=== PATIENT | female | born 1995 | race Two or more races ===

== ENCOUNTER 2017-02-25 19:52 | Emergency (ER) | payer OTHER ==
[~2017-02-25] VITALS: Ht 157.5 cm; Wt 86.2 kg
[~2017-02-25 19:52] MED LIST: NITR100C62 PO; TRAM-48 PO
--- NOTE | 2017-02-25 20:03 | PHYS DOC ---
Past Medical History Past Medical History: No Pertinent History Past Surgical History: No Surgical History Alcohol Use: None Drug Use: None Adult General Chief Complaint Chief Complaint: VAGINAL BLEEDING HPI HPI Patient is a 21 year old female who presents with vaginal bleeding. She states she had her last menstrual period on November 30, 2016. She states that on Thursday she had bleeding into her underwear and then Thursday got less and then Thursday she developed some intermittent cramps. She states everything resolved until today when she started bleeding again. She states she' s been through 2 pads. She also has some intermittent cramps today. She denies any fevers chills nausea or vomiting. She denies any history of sexual transmitted infections. Review of Systems Review of Systems Constitutional: Denies fever or chills [] Eyes: Denies change in visual acuity, redness, or eye pain [] HENT: Denies nasal congestion or sore throat [] Respiratory: Denies cough or shortness of breath [] Cardiovascular: No additional information not addressed in HPI [] GI: Denies abdominal pain, nausea, vomiting, bloody stools or diarrhea [] : Denies dysuria or hematuria [] Musculoskeletal: Denies back pain or joint pain [] Integument: Denies rash or skin lesions [] Neurologic: Denies headache, focal weakness or sensory changes [] Endocrine: Denies polyuria or polydipsia [] Allergies Allergies Allergies Coded Allergies Type Severity Reaction Last Updated Verified No Known Drug Allergies 12/25/15 No Physical Exam Physical Exam Constitutional: Well developed, well nourished, no acute distress, non-toxic appearance. [] HENT: Normocephalic, atraumatic, bilateral external ears normal, oropharynx moist, no oral exudates, nose normal. [] Eyes: PERRLA, EOMI, conjunctiva normal, no discharge. [] Neck: Normal range of motion, no tenderness, supple, no stridor. [] Cardiovascular:Heart rate regular rhythm, no murmur [] Lungs & Thorax: Bilateral breath sounds clear to auscultation [] Abdomen/pelvic exam: Bowel sounds normal, soft, no tenderness, no masses, no pulsatile masses. Normal external genitalia, no bleeding in the vault, no cervical motion tenderness. Skin: Warm, dry, no erythema, no rash. [] Back: No tenderness, no CVA tenderness. [] Extremities: No tenderness, no cyanosis, no clubbing, ROM intact, no edema. [] Neurologic: Alert and oriented X 3, normal motor function, normal sensory function, no focal deficits noted. [] Psychologic: Affect normal, judgement normal, mood normal. [] Current Patient Data Vital Signs Vital Signs Date Time Temp Pulse Resp B/P (MAP) Pulse Ox O2 Delivery O2 Flow Rate FiO2 02/25/17 20:05 98.8 86 16 115/56 (75) 97 Room Air 98.8 Lab Values Laboratory Tests Test 02/25/17 19:20 02/25/17 20:00 02/25/17 20:44 POC Urine HCG, Qualitative Hcg positive (Negative) Urine Collection Type Unknown Urine Color Yellow Urine Clarity Cloudy Urine pH 6.5 Urine Specific [place] >=1.030 Urine Protein 30 mg/dL (NEG-TRACE) Urine Glucose (UA) 100 mg/dL (NEG) Urine Ketones (Stick) Negative mg/dL (NEG) Urine Blood Large (NEG) Urine Nitrite Negative (NEG) Urine Bilirubin Negative (NEG) Urine Urobilinogen Dipstick 0.2 mg/dL (0.2 mg/dL) Urine Leukocyte Esterase Large (NEG) Urine RBC Tntc /HPF (0-2) Urine WBC Tntc /HPF (0-4) Urine Squamous Epithelial Cells Few /LPF Urine Amorphous Sediment Present /HPF Urine Bacteria Moderate /HPF (0-FEW) Urine Mucus Slight /LPF White Blood Count 9.0 x10^3/uL (4.0-11.0) Red Blood Count 4.34 x10^6/uL (3.50-5.40) Hemoglobin 13.1 g/dL (12.0-15.5) Hematocrit 38.2 % (36.0-47.0) Mean Corpuscular Volume 88 fL (79-100) Mean Corpuscular Hemoglobin 30 pg (25-35) Mean Corpuscular Hemoglobin Concent 34 g/dL (31-37) Red Cell Distribution Width 12.8 % (11.5-14.5) Platelet Count 236 x10^3/uL (140-400) Neutrophils (%) (Auto) 68 % (31-73) Lymphocytes (%) (Auto) 25 % (24-48) Monocytes (%) (Auto) 7 % (0-9) Eosinophils (%) (Auto) 0 % (0-3) Basophils (%) (Auto) 0 % (0-3) Neutrophils # (Auto) 6.1 x10^3uL (1.8-7.7) Lymphocytes # (Auto) 2.2 x10^3/uL (1.0-4.8) Monocytes # (Auto) 0.6 x10^3/uL (0.0-1.1) Eosinophils # (Auto) 0.0 x10^3/uL (0.0-0.7) Basophils # (Auto) 0.0 x10^3/uL (0.0-0.2) Prothrombin Time 13.4 SEC (11.7-14.0) Prothrombin Time INR 1.1 (0.8-1.1) PTT 31 SEC (24-38) Sodium Level 140 mmol/L (136-145) Potassium Level 3.6 mmol/L (3.5-5.1) Chloride Level 105 mmol/L (98-107) Carbon Dioxide Level 25 mmol/L (21-32) Anion Gap 10 (6-14) Blood Urea Nitrogen 9 mg/dL (7-20) Creatinine 0.6 mg/dL (0.6-1.0) Estimated GFR (Cockcroft-Gault) 127.5 Glucose Level 102 mg/dL (70-99) H Calcium Level 8.2 mg/dL (8.5-10.1) L Total Bilirubin 0.1 mg/dL (0.2-1.0) L Direct Bilirubin < 0.1 mg/dL (0.0-0.2) Aspartate Amino Transferase (AST) 17 U/L (15-37) Alanine Aminotransferase (ALT) 52 U/L (14-59) Alkaline Phosphatase 55 U/L (46-116) Total Protein 6.7 g/dL (6.4-8.2) Albumin 3.2 g/dL (3.4-5.0) L Laboratory Tests 02/25/17 20:44 Laboratory Tests 02/25/17 20:44 Microbiology 02/25/17 Wet Prep - Final, Complete Microbiology 02/25/17 Wet Prep - Final, Complete EKG EKG [] Radiology/Procedures Radiology/Procedures [facility] [address] [place] [address] IMAGING REPORT Signed PATIENT: JAKE BRAUN ACCOUNT: [id number] : 1995 LOCATION: ER AGE: 21 SEX: F EXAM STATUS: REG ER ORD. PHYSICIAN: LESLIE GUTIERREZ MD REASON: vaginal bleeding PROCEDURE: OB < 14 WKS EXAM: Obstetrics sonogram. HISTORY: Vaginal spotting. TECHNIQUE: Transabdominal sonographic imaging of the pelvis was performed. COMPARISON: None. FINDINGS: The uterus measures 10.3 x 10.3 x 7.8 cm. There is an irregular fluid collection within the endometrial cavity with surrounding heterogeneous endometrium, likely due to an abnormal gestational sac with surrounding decidual reaction. There is suggestion of a small yolk sac. There is a focal echogenic structure within the suspected gestational sac likely representing a pole, with a crown-rump length of 2.0 cm. This corresponds with a gestational age of 8 weeks and 4 days. No cardiac activity is seen. The ovaries are normal in size and demonstrate normal blood flow. There is no pelvic free fluid. IMPRESSION: 1. Irregular fluid collection within the endometrial cavity with surrounding heterogeneous endometrium, likely due to an abnormal gestational sac with surrounding decidual reaction. There is a suspected pole with crown-rump length measurement corresponding with a gestational age of 8 weeks and 4 days. There is no cardiac activity. This is consistent with intrauterine demise/missed miscarriage. Follow-up can be performed to exclude retained products. 2. Otherwise, unremarkable pelvic sonogram. Electronically signed by: Allyssa Jiang MD (02/25/2017 8:51 PM) [facility] DICTATED and SIGNED BY: ALLYSSA JIANG MD DATE: 02/25/172046 CC: LESLIE GUTIERREZ MD; NO PCP ~ RUN DATE: 02/25/17 PAGE 1 RUN TIME: 2118 [facility] [address] [place] [address] Tino Suresh M.D., Line Service Supervisor PATIENT: JAKE BRAUN ACCT: [id number] LOC: [facility] U : [id number] AGE/SX: 21/ ROOM: REG : 02/25/[address]: LESLIE GUTIERREZ MD : 1995 BED: DIS : STATUS: REG ER TLOC: SPEC #: [id number] CONNIE: 02/25/17 STATUS: COMP REQ #: [id number] RECD: 02/25/[address] [facility] [address]: LESLIE GUTIERREZ MD SOURCE: VAGINAL ENTR: 02/25/[address]: PAMELA SAUCEDO SPDESC: ORDERED: WET PREP COMMENTS: Has specimen been collected/obtained? Y Procedure Result WET PREP Final YEAST NONE SEEN TRICHOMONAS NONE SEEN CLUE CELLS CLUE CELLS PRESENT ALTERED BHARATH ALTERED BHARATH PRESENT SUGGESTIVE OF BACTERIAL VAGINOSIS WBCS FEW RBCS OCCASIONAL SQUAMOUS EPS MODERATE Impressions: Threatened miscarriage Bacterial vaginosis UTI Course & Med Decision Making Course & Med Decision Making Pertinent Labs and Imaging studies reviewed. (See chart for details) Ultrasound does not show a heart rate. She likely has demise. Her blood type is A+. Labs are nonacute other than suggestive of a UTI and bacterial vaginosis. Patient has a follow-up appointment on Thursday with her OB/ [facility] [facility] physician. Patient is being discharged nitrofurantoin in addition to clindamycin 300 mg twice a day for 7 days. Return precautions given. Patient's agreeable plan being discharged in stable condition at this time. Dragon Disclaimer Dragon Disclaimer This electronic medical record was generated, in whole or in part, using a voice recognition dictation system. Departure Departure Impression: Primary Impression: Urinary tract infection Additional Impressions: Threatened Bacterial vaginosis Disposition: HOME, SELF-CARE Condition: STABLE Referrals: NO PCP (PCP) Patient Instructions: Threatened Miscarriage Additional Instructions: You will need take 2 different antibiotics for the next week. One is called nitrofurantoin and the other was called clindamycin. Please take them as instructed. You are likely having a miscarriage and you will need to follow-up with your [facility] physician on Thursday. If you develop increasing pain, lightheadedness dizziness, increasing vaginal bleeding or you have other concerns please return back to emergency department Scripts Nitrofurantoin Monohyd/M-Cryst (MACROBID 100 MG CAPSULE) 100 Mg Capsule 1 CAP PO BID, #14 CAP Prov: LESLIE GUTIERREZ MD 02/25/17 Clindamycin Hcl (CLINDAMYCIN HCL) 300 Mg Capsule 1 CAP PO BID, #14 CAP Prov: LESLIE GUTIERREZ MD 02/25/17 Problem Qualifiers Primary Impression: Urinary tract infection Urinary tract infection type: acute cystitis Hematuria presence: with hematuria Qualified Codes: N30.01 - Acute cystitis with hematuria LESLIE GUTIERREZ MD Feb 25, 2017 20:03
[2017-02-25 20:20] LABS: BILIRUBIN,URINE NEGATIVE (NEG); GLUCOSE,URINE 100 mg/dL (NEG); NITRITE,URINE NEGATIVE (NEG); PH,URINE 6.5; PROTEIN,URINE 30 mg/dL (NEG-TRACE); UROBILINOGEN,URINE 0.2 mg/dL (0.2 mg/dL)
[2017-02-25 20:24] LABS: BACTERIA,URINE MODERATE /HPF (0-FEW); RBC,URINE TNTC /HPF (0-2); SQUAMOUS EPITHELIAL CELL,UR FEW /LPF; WBC,URINE TNTC /HPF (0-4)
--- NOTE | 2017-02-25 20:54 | RAD ---
EXAM: Obstetrics sonogram. HISTORY: Vaginal spotting. TECHNIQUE: Transabdominal sonographic imaging of the pelvis was performed. COMPARISON: None. FINDINGS: The uterus measures 10.3 x 10.3 x 7.8 cm. There is an irregular fluid collection within the endometrial cavity with surrounding heterogeneous endometrium, likely due to an abnormal gestational sac with surrounding decidual reaction. There is suggestion of a small yolk sac. There is a focal echogenic structure within the suspected gestational sac likely representing a pole, with a crown-rump length of 2.0 cm. This corresponds with a gestational age of 8 weeks and 4 days. No cardiac activity is seen. The ovaries are normal in size and demonstrate normal blood flow. There is no pelvic free fluid. IMPRESSION: 1. Irregular fluid collection within the endometrial cavity with surrounding heterogeneous endometrium, likely due to an abnormal gestational sac with surrounding decidual reaction. There is a suspected pole with crown-rump length measurement corresponding with a gestational age of 8 weeks and 4 days. There is no cardiac activity. This is consistent with intrauterine demise/missed miscarriage. Follow-up can be performed to exclude retained products. 2. Otherwise, unremarkable pelvic sonogram. Electronically signed by: Allyssa Cheema MD (02/25/2017 8:51 PM) [facility]
[2017-02-25 21:11] LABS: BASO % 0 % (0-3); EOS % 0 % (0-3); HEMATOCRIT 38.2 % (36.0-47.0); HEMOGLOBIN 13.1 g/dL (12.0-15.5); LYMPH # 2.2 x10^3/uL (1.0-4.8); LYMPH % 25 % (24-48); MEAN CORPUSCULAR HEMOGLOBIN 30 pg (25-35); MEAN CORPUSCULAR HGB CONC 34 g/dL (31-37); MEAN CORPUSCULAR VOLUME 88 fL (79-100); MONO % 7 % (0-9); NEUT % 68 % (31-73); PLATELET COUNT 236 x10^3/uL (140-400); RED BLOOD COUNT 4.34 x10^6/uL (3.50-5.40); RED CELL DISTRIBUTION WIDTH 12.8 % (11.5-14.5)
[2017-02-25 21:20] LABS: INR 1.1 (0.8-1.1); PROTHROMBIN TIME PATIENT 13.4 SEC (11.7-14.0)
[2017-02-25 21:21] LABS: ANION GAP 10 (6-14); BLOOD UREA NITROGEN 9 mg/dL (7-20); CALCIUM 8.2 mg/dL (8.5-10.1); CARBON DIOXIDE 25 mmol/L (21-32); CHLORIDE 105 mmol/L (98-107); CREATININE 0.6 mg/dL (0.6-1.0); GFR 127.5; GLUCOSE 102 mg/dL (70-99); POTASSIUM 3.6 mmol/L (3.5-5.1); SODIUM 140 mmol/L (136-145)
[2017-02-25 21:29] LABS: ALBUMIN 3.2 g/dL (3.4-5.0); ALK PHOS 55 U/L (46-116); ALT (SGPT) 52 U/L (14-59); AST (SGOT) 17 U/L (15-37); DIRECT BILIRUBIN < 0.1 mg/dL (0.0-0.2); TOTAL BILIRUBIN 0.1 mg/dL (0.2-1.0); TOTAL PROTEIN 6.7 g/dL (6.4-8.2)
[2017-02-25 22:00] VITALS: BP 110/51
[2017-02-25] MEDS ORDERED: CLIN300C8 PO (22:28)
[2017-02-25] MEDS ORDERED: NITR100C62 PO (22:28)
== END 2017-02-25 22:47 | disposition home or self-care (01) ==
LOC: ER 19:52
DX: O20.0 Threatened abortion (principal); O23.41 Unspecified infection of urinary tract in pregnancy, first trimester; O23.591 Infection of other part of genital tract in pregnancy, first trimester; Z3A.08 8 weeks gestation of pregnancy
CPT/HCPCS: 36415; 76801; 80048; 80076; 81001; 81025; 84702; 85025; 85610; 85730; 86900; 86901; 87086; 87491; 87591; 99285; Q0111